=== PATIENT | female | born 1990 | race Caucasian/White ===

== ENCOUNTER 2017-08-01 10:29 | Inpatient (IN) ==
[2017-08-01] MEDS ORDERED: *HR* Nalbuphine 10 MG/ML AMPUL IVP PRN (10:49)
[2017-08-01] MEDS ORDERED: Lidocaine 1% 20 ML MDV INFILT PRN (10:49)
[2017-08-01] MEDS ORDERED: Famotidine 20 MG/2 ML VIAL IVP PRN (10:49)
[2017-08-01] MEDS ORDERED: Ondansetron 4 MG/2 ML VIAL IVP PRN (10:49)
[2017-08-01] MEDS ORDERED: Naloxone 0.4 MG/ML INJ IVP PRN (10:49)
[2017-08-01] MEDS ORDERED: Metoclopramide 10 MG/2 ML VIAL IVP PRN (10:49)
[2017-08-01] MEDS ORDERED: Ringers Solution, Lactated 1,000 ML IVC SCH (11:00)
[2017-08-01 11:15] LABS: Basophils % 0.2 %; Eosinophils % 0.2 %; Hematocrit 35.7 % (35.3-44.9); Hemoglobin 12.3 g/dL (11.5-15.4); Immature Granulocytes % 1.1 % (0-4); Lymphocytes # 1.3 K/mcL (0.6-4.6); Lymphocytes % 11.3 %; Mean Corpuscular HGB Conc 34.5 g/dL (31.6-35.5); Mean Corpuscular Hemoglobin 31.1 pg (28.0-33.3); Mean Corpuscular Volume 90.4 fL (83.0-100.0); Mean Platelet Volume 12.6 fL (9.4-12.4); Monocytes # 0.7 K/mcL (0.0-1.3); Neutrophils # 9.1 K/mcL (1.6-8.9); Platelet Count 147 K/mcL (140-400); Red Blood Count 3.95 M/mcL (3.82-4.97); Red Cell Distribution Width 13.5 % (11.5-14.5); Segmented Neutrophils % 81.2 %
--- NOTE | 2017-08-01 11:50 | OB/GYN History & Physical ---
Date of Encounter: 08/01/17 Time of Encounter: 11:47 Assessment and Plan (1) Encounter for induction of labor Current visit: Yes Status: Acute Admit to Labor and Delivery for induction of labor GBS negative Intracervical Restrepo Cytotec orally Consider Pitocin Patient may have nubain and/or epidural upon request Anticipate vaginal delivery POC per consult with Dr Bui History of Present Illness Chief complaint: BPP 6/8 HPI: 27 year old at 41 weeks 0 days gestation presents to labor and delivery for induction of labor after BPP 6/8 for no breathing. Denies vaginal bleeding, leaking fluid and contractions. States baby moving well. lab: Blood type O Rh positive GBS negative Rubela immune Vricella immune HBsAg negative HIV negative RPR negative GC/Chlamydia negative Urine cx negative Past Med Surg Social Fam HX - Past Medical History Medical history: no medical history Psychiatric history: no psych history - Past Surgical History Surgical History: no surgical history - Social History Smoking Status: Never smoker Smokeless Tobacco Status: No Alcohol use: none Drug use: none - Family History Father Adopted: No Living Status: Still Living Hx Family Cardiac Disorders: No Hx Family Respiratory Disorders: No Hx Family Cancer: No Hx Family GI Disorders: No Hx Family Genitourinary Disorders: No Hx Family Endocrine Disorder: Yes (DM) Hx Family Musculoskeletal Disorders: No Hx Family Neuromuscular Disorders: No Hx Family Neurologic Disorders: No Hx Family HEENT Disorders: No Hx Family Autoimmune Disorders: No Hx Family Reproductive Disorders: No Hx Family Psychosocial Disorders: No Hx Family Medical Disorders: No Obstetrical History - Pregnancies : 3 Para: 1 Term: 0 : 0 Ab's: 1 Livin Medications and Allergies Docosahexanoic Acid [ Dha] 200 mg PO DAILY 02/27/15 [History] Ferrous Sulfate [Ferrous Sulfate] 325 mg PO DAILY 02/27/15 [History] 3 Allergy/AdvReac Type Severity Reaction Status Date / Time No Known Allergies Allergy Verified 02/27/15 07:30 Review of System OB All systems PM: reviewed and no additional remarkable complaints except as stated Exam - Constitutional Constitutional: well developed, well nourished, no acute distress - Neck Neck exam: full ROM - Lungs Respiratory exam: CTAB - Cardiovascular Cardiovascular exam: RRR - Abdomen Abdomen: Present: bowel sounds normal, gravid, non tender - Extremities Extremities exam: full ROM, normal inspection, radial pulses palpable and symmetrical Deep Tendon Reflex Grade: 2+ Normal - Vagina Vagina: Present: normal moisture - Cervix Dilation: 2 Effacement: 70 Station: -2 - Uterus Uterus exam: Present: normal size, normal contour - Anus/Rectum Anus/Rectum: Present: normal perianal skin - Comments Comments: FHR Category 1 Results Result Diagrams: 08/01/17 11:03 Abnormal lab results WBC 11.2 K/mcL (4.3-11.1) H 08/01/17 11:03 MPV 12.6 fL (9.4-12.4) H 08/01/17 11:03 Neutrophils # 9.1 K/mcL (1.6-8.9) H 08/01/17 11:03 All other labs normal. - VTE Reasons for not Prescribing Prophylaxis: Treatment not Indicated - Low risk for VTE
[2017-08-01 12:29] LABS: Amphetamine Screen,Urine Negative ng/mL (Cutoff=1000); Barbiturate Screen,Urine Negative ng/mL (Cutoff=200); Benzodiazepines Screen,Urine Negative ng/mL (Cutoff=200); Cannabinoid Screen,Urine Negative ng/mL (Cutoff = 50); Cocaine Screen,Urine Negative ng/mL (Cutoff= 300); Opiate Screen,Urine Negative ng/mL (Cutoff=300); Phencyclidine Screen,Urine Negative ng/mL (Cutoff=25)
[2017-08-01] MEDS: miSOPROStol 25 MCG TABLET PO PRN ×2 (13:14→18:55)
--- NOTE | 2017-08-01 13:26 | OB Labor Progress Note ---
Date of Encounter: 08/01/17 Time of Encounter: 13:24 Labor Progress Note - Subjective Subjective: Patient resting in bed comfortably. She states she is anxious. - Vital Signs Vital Signs: VSS - Cervix Cervix: 2/70/-2 posterior moderate consistency - Heart Tones Heart Tones: 125 category I - [place]: No contractions per TOCO - Interventions Interventions: Intracervical pineda placed without difficulty; fetus and patient tolerated well. - Plan Plan: Continue routine labor management Consider pitocin vs another dose of cytotec vs AROM GBS negative Anticipate vaginal delivery POC per consult with Dr Bui
[2017-08-01] MEDS ORDERED: Oxytocin 20 units/ LR 1000 mL 20 UNIT/1,000 ML BAG IVC ONE ×2 (19:50→21:27)
--- NOTE | 2017-08-01 19:55 | OB Labor Progress Note ---
Date of Encounter: 08/01/17 Time of Encounter: 19:53 Labor Progress Note - Subjective Subjective: Patient vocalizing through contractions. - Vital Signs Vital Signs: VSS - Cervix Cervix: 4/90/+2 - Heart Tones Heart Tones: 140 category I - Tranquillity Tranquillity: Contractions every 2-3 minutes - Plan Plan: Continue routine labor management Patient may have nubain and/or epidural upon request GBS negative Anticipate vaginal delivery POC per consult with Dr Bui
--- NOTE | 2017-08-01 21:11 | OB/GYN Procedure Note ---
Delivery - Delivery Date: 08/01/17 Provider: Shanna Page Intrapartum events: none Delivery induction: pineda, misoprostol Delivery monitor: external FHT, external uterine Anesthesia: none Estimated Blood Loss: 350 - Infant (s) Infant A Delivery Date: 08/01/17 Infant Delivery Time: 20:48 Presentation: vertex Position: LEONID Route of delivery: Gender: Female Viability: Viable Pounds: 7 Ounces: 7 Weight Gram: 3255 kg at 1 minute: 9 at 5 mins: 10 Shoulder Dystocia: not encountered Specimens collected: cord blood Placenta: spontaneous - Repair Episiotomy: none Laceration Description: Superficial (left and right periuretral superficial laceration, hemostatic, not repaired) - Complications Delivery complications: none Delivery comments: Patient progressed to complete and began spontaneously pushing to delivery of viable, vigorous female in the LEONID position. Shoulders delivered without difficulty, no nuchal cord, no meconium encountered. Infant placed on maternal abdomen, pink with good cry. Cord double clamped and cut with assistance from father of baby after pulsations ceased. Cord blood obtained. Placenta delivered , Crouch and intact with three vessel cord. Upon perineal inspection, bilateral superficial periurethral lacerations noted which were hemostatic; left to heal by second intention. Fundus firm and 2 below the umbilicus with small amount of bleeding. EBL 350 ml. Mother and infant stable in room recovering for 2 hours. notified of delivery. Delivery attended NEIL Cabrales and Mallika Page CNM - Disposition Mom disposition: stable in LDR [place] disposition: stable in LDR
[2017-08-01] MEDS ORDERED: Acetaminophen 325 MG TABLET PO PRN (21:27)
[2017-08-01] MEDS ORDERED: Sennosides 8.6 MG TABLET PO PRN (21:27)
[2017-08-01] MEDS ORDERED: Ibuprofen 600 MG TABLET PO PRN (21:27)
[2017-08-01] MEDS ORDERED: Oxytocin 20 units/ LR 1000 mL 20 UNIT/1,000 ML BAG IVC SCH (21:27)
[2017-08-01] MEDS ORDERED: Benzocaine/Menthol 56 GM AEROSOL SPRAY TP PRN (21:27)
[2017-08-01] MEDS ORDERED: Measles/Mumps/Rubella Vacc 0.5 ML VIAL SQ PRN (21:27)
[2017-08-02] MEDS ORDERED: Prenatal Vit/FA 1 EACH TABLET PO SCH (09:00)
--- NOTE | 2017-08-02 14:35 | OB/GYN Progress Note ---
Date of Encounter: 08/02/17 Time of Encounter: 11:00 - Assessment and Plan (1) Vaginal delivery Current Visit: No Status: Acute Stable PPD#1. Discussed may discharge this evening if stable and desires At this time pt desires to stay over night. anticipate discharge in AM Subjective - Subjective Patient reports: appetite normal, voiding normally, pain well controlled, ambulating normally : doing well Objective - Latest Vital Signs Latest vital signs: Vital Signs Temp Pulse Resp BP Pulse Ox 08/02/17 11:00 16 08/02/17 01:28 98.4 F 88 14 113/77 99 08/02/17 00:30 98.5 F 89 14 111/71 98 08/01/17 23:30 99.4 F 82 18 112/70 98 Intake and Output 08/01/17 08/02/17 08/02/17 23:59 07:59 15:59 Output Total 400 / 400 900 / 900 Balance -400 / -400 -900 / -900 Output: Urine 400 / 400 900 / 900 Other: # Urine Diapers 2 Weight 44.9 kg Patient Weight 08/02/17 23:59 Weight 44.9 kg - Exam Lungs: bilateral: normal Chest: Normal S1 Extremities: Present: normal Abdomen: Present: normal appearance, soft, gravid Uterus Position: At Umbilicus
--- NOTE | 2017-08-02 18:53 | Discharge Summary ---
Date of Encounter: 08/02/17 Time of Encounter: 18:49 - Discharge Diagnosis (1) Vaginal delivery Priority: Primary Status: Acute Comments: Stable, meeting all PP milestones, desires discharge - Discharge Medications Prescriptions: Ibuprofen [Motrin] 600 mg PO Q6HR PRN #60 tablet PRN Reason: Cramping Breast Pump [BREAST PUMP] 1 each .ROUTE AD #1 each Docusate [Colace] 100 mg PO BID #60 capsule Home Medications: Acetaminophen [Tylenol] 650 mg PO Q6HR PRN tablet 08/02/17 [Rx] Benzocaine/Menthol Napoleon [Dermoplast Napoleon] 1 appl TP QID PRN aerosol 08/02/17 [Rx] Breast Pump [BREAST PUMP] 1 each .ROUTE AD #1 each 08/02/17 [Rx] Docusate [Colace] 100 mg PO BID #60 capsule 08/02/17 [Rx] Ibuprofen [Motrin] 600 mg PO Q6HR PRN #60 tablet 08/02/17 [Rx] Vit/FA 1 each PO DAILY tablet 08/02/17 [Rx] Allergies/Adverse Reactions: 3 Allergy/AdvReac Type Severity Reaction Status Date / Time No Known Allergies Allergy Verified 02/27/15 07:30 Data Procedures and tests throughout hospitalization: Laboratory Tests 08/01/17 08/01/17 11:03 11:03 WBC 11.2 H RBC 3.95 Hgb 12.3 Hct 35.7 MCV 90.4 MCH 31.1 MCHC 34.5 RDW 13.5 Plt Count 147 MPV 12.6 H Immature Gran % 1.1 Seg Neutrophils % 81.2 Lymphocytes % 11.3 Monocytes % 6.0 Eosinophils % 0.2 Basophils % 0.2 Neutrophils # 9.1 H Lymphocytes # 1.3 Monocytes # 0.7 Eosinophils # 0.0 Basophils # 0.0 Urine Opiates Screen Negative Ur Barbiturates Screen Negative Ur Phencyclidine Scrn Negative Ur Amphetamines Screen Negative U Benzodiazepines Scrn Negative Urine Cocaine Screen Negative U Marijuana (THC) Screen Negative Date of admission: 08/01/17 10:29 Primary care physician: PCP NONE Consults: 08/01/17 21:27 Consult to Network Manager [CONS] Routine Comment: Vaginal delivery, consult needed Discharging clinician: Tamara Salamanca Anticipated date of discharge: 05/01/18 - Patient Status Disposition: Home, Self-Care Condition: Good Functional capacity at discharge: independent ambulation Overall status at discharge: patient is back to baseline - Discharge Instructions Follow Up With: NONE,PCP [Primary Care Provider] - - Diet and Activity Activity: resume usual activities as tolerated Diet: regular diet Hospital Course Reason for admission: induction of labor, IUP at term Delivery: Episiotomy: none Laceration: other (superficial) Other procedures: none complications: none Discharge diagnosis: IUP at term delivered baby: female Hospital course: Delivery - Delivery Date: 08/01/17 Provider: Shanna Page Intrapartum events: none Delivery induction: pineda, misoprostol Delivery monitor: external FHT, external uterine Anesthesia: none Estimated Blood Loss: 350 - Infant (s) Infant A Delivery Date: 08/01/17 Infant Delivery Time: 20:48 Presentation: vertex Position: LEONID Route of delivery: Gender: Female Viability: Viable Pounds: 7 Ounces: 7 Weight Gram: 3255 kg at 1 minute: 9 at 5 mins: 10 Shoulder Dystocia: not encountered Specimens collected: cord blood Placenta: spontaneous - Repair Episiotomy: none Laceration Description: Superficial (left and right periuretral superficial laceration, hemostatic, not repaired) - Complications Delivery complications: none Delivery comments: Patient progressed to complete and began spontaneously pushing to delivery of viable, vigorous female infant in the LEONID position. Shoulders delivered without difficulty, no nuchal cord, no meconium encountered. Infant placed on maternal abdomen, pink with good cry. Cord double clamped and cut with assistance from father of baby after pulsations ceased. Cord blood obtained. Placenta delivered , Crouch and intact with three vessel cord. Upon perineal inspection, bilateral superficial periurethral lacerations noted which were hemostatic; left to heal by second intention. Fundus firm and 2 below the umbilicus with small amount of bleeding. EBL 350 ml. Mother and infant stable in room recovering for 2 hours. notified of delivery. Delivery attended NEIL Cabrales and Mallika Page CNM - Disposition Mom disposition: stable in PP and appropriate for discharge. Time Attestation: Total time spent providing and/or coordinating discharge services: Time Spent: Less than 30 minutes Exam - Constitutional Vitals: Temp Pulse Resp BP Pulse Ox 98.0 F 60 16 104/64 99 08/02/17 15:30 08/02/17 15:30 08/02/17 15:30 08/02/17 15:30 08/02/17 01:28 General appearance IM: A&O X 3 - Respiratory Respiratory exam: Present: CTAB - Cardiovascular Cardiovascular exam IM: Present: RRR - GI/Abdominal GI/Abdominal exam IM: soft - Uterine Tone: Firm Uterus Position: At Umbilicus - Extremities Exam Extremities exam IM: Present: normal capillary refill, normal inspection - Neurological Exam Neurological exam: normal gait, oriented X3 - Psychiatric Additional comments: reports good mood.
[2017-08-02 20:54] VITALS: BP 101/64
== END 2017-08-02 22:13 | disposition home or self-care (01) | DRG 560 ==
LOC: 1NENULAB 10:29 → 1NENUOBS 23:47
PROVIDERS: ADMIT Obstetrics & Gynecology; ATTEND Obstetrics & Gynecology